=== PATIENT | male | born 1980 | race Caucasian/White ===

== ENCOUNTER 2016-04-22 19:30 | Emergency (ER) | payer BC ==
[2016-04-22 20:44] LABS: BASO % 0.4 % (0.2-1.2); EOS # 0.1 10_X3_uL (0.0-0.5); EOS % 1.3 % (0.8-7.0); GRAN # 6.7 10_X3_uL (1.8-5.4); GRAN % 78.8 % (34.0-67.9); HEMATOCRIT 46.3 % (40-51); LYMPH # 0.8 10_X3_uL (1.3-3.6); LYMPH % 9.1 % (21.8-53.1); MEAN CORPUSCULAR HEMOGLOBIN 31.5 pg (27.0-33.0); MEAN CORPUSCULAR HGB CONC 36.7 g/dL (32.0-36.0); MEAN CORPUSCULAR VOLUME 85.9 fL (79-92); MEAN PLATELET VOLUME 8.6 fl (7.5-11.5); MONO # 0.9 10_X3_uL (0.3-0.8); MONO % 10.4 % (5.3-12.2); PLATELET COUNT 229 x10_3/uL (163-337); RED BLOOD COUNT 5.39 x10_6/uL (4.6-6.1); RED CELL DISTRIBUTION WIDTH 12.7 % (11.6-14.4); WHITE BLOOD COUNT 8.6 x10_3/uL (4.2-9.1)
[2016-04-22 21:00] LABS: ALBUMIN 4.5 gm/dL (3.4-5.0); ALKALINE PHOSPHATASE 73 U/L (50-136); ALT/SGPT 151 U/L (7.53-40.17); AST/SGOT 73 U/L (6.66-35.34); BLOOD UREA NITROGEN 15 mg/dL (7-18); CALCIUM 8.6 mg/dL (8.7-10.7); CARBON DIOXIDE 19 mmol/L (21-32); CREATININE 0.9 mg/dL (0.6-1.3); GLUCOSE,RANDOM 105 mg/dL (70-99); POTASSIUM 3.6 mmol/L (3.5-5.1); SODIUM 133 mmol/L (136-145); TOTAL PROTEIN 7.3 gm/dL (6.4-8.2)
== END 2016-04-22 22:19 | disposition home or self-care (01) ==
LOC: ER 19:30
PROVIDERS: Emergency Medicine
DX: R19.7 Diarrhea, unspecified (principal); E86.0 Dehydration; R06.6 Hiccough; F17.220 Nicotine dependence, chewing tobacco, uncomplicated; Z87.442 Personal history of urinary calculi; Z88.0 Allergy status to penicillin; Z88.1 Allergy status to other antibiotic agents
CPT/HCPCS: 36415; 80053; 85025; 96360; 96372; 99070; 99284-25; J3230